=== PATIENT | male | born 2000 | race Caucasian/White ===

== ENCOUNTER → 2019-04-09 19:06 | Outpatient (BNVA) | payer OTHER, SELFPAY | PROVIDERS: PCP Family Medicine; Visit Provider Nurse Practitioner | DX: S99.911A Unspecified injury of right ankle, initial encounter (principal); Y99.0 Civilian activity done for income or pay | CPT/HCPCS: 73610 ==

== ENCOUNTER 2019-08-10 19:03 | Emergency (ER) | payer MEDICAID, SELFPAY ==
[2019-08-10 19:14] VITALS: BP 148/81; PULSE 91; RESP 18; TEMP 37.1; O2SAT 97; BMI 26.4
--- NOTE | 2019-08-10 19:28 | XR_ITS ---
WS: [id number] XR foot RT min 3V* [id number] REASON FOR EXAM: puncture FINDINGS: The calcaneus appears to be normal. The plantar surface of foot shows edema this changes in the proximal metatarsal area. The phalanges, metatarsals and tarsals are normal. XR/XR foot RT min 3V* [id number] IMPRESSION: Soft tissue swelling plantar surface of foot.
--- NOTE | 2019-08-10 19:28 | W.ED.WOUNDLC ---
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 Bleeding is controlled with a long sock tied as a tourniquet around the foot. Onset (ago): hour(s) Extremity Location: Right: foot Place: home Patient tetanus UTD: No Context: accidental Associated symptoms: Reports no associated symptoms; Denies chills, fever(s), nausea or vomiting Treatments prior to arrival: bandage and tourniquet Review of Systems Const: Denies: fever or chills Card: Denies: chest pain, palpitations or edema Resp: Denies: shortness of breath, productive cough or wheezing GI: Denies: abdominal pain, nausea, vomiting or vomiting blood Musc: Reports: extremity pain; Denies: neck pain PFSH ED PFSH: Social History (Updated 05/06/19 @ 10:50 by Shari Pollard LPN) Smoking and tobacco status: current every day smoker Alcohol intake: never Physical Exam Const: GENERAL APPEARANCE: well developed ORIENTATION/CONSCIOUSNESS: Yes oriented to person, Yes oriented to place and Yes oriented to time HENMT: COMMON NORMALS: normocephalic, external ears normal and external nose normal HEAD & SCALP: normocephalic FACE & SINUS: normal facial exam NOSE: external nose normal EXTERNAL EAR: Yes external ears normal THROAT: posterior oropharynx normal; no peritonsillar mass Eye: COMMON NORMALS: PERRL, EOMs intact bilaterally and conjunctivae normal EYELID: eyelids normal CONJUNCTIVA: Yes conjunctivae normal PUPIL: Yes PERRL Neck/C-Spine: COMMON NORMALS: full ROM GENERAL: No tracheal deviation Chest: COMMONS NORMALS: inspection of chest normal CHEST: No tenderness Resp: COMMON NORMALS: clear to auscultation bilaterally AUSCULTATION: clear to auscultation bilaterally, no rhonchi, no wheezes and lung sounds not diminished Cardio: COMMON NORMALS: regular rate and regular rhythm RATE: regular rate RHYTHM: regular rhythm HEART SOUNDS: no murmurs PERIPHERAL PULSES: radial pulses present GI: INSPECTION: No abdominal distension Extremity: NARRATIVE EXTREMITY EXAM: Puncture wound to the plantar right foot, mid arch. No deformity. Neuro: SENSORIUM/ORIENTATION: Yes oriented to person, Yes oriented to place and Yes oriented to time Psych: COMMON NORMALS: mental status grossly normal Skin: COMMON NORMALS: no rashes or lesions noted GENERAL SKIN EXAM: no rashes or lesions noted Procedures Laceration Laceration 1: Site: lower extremity (Plantar foot) Side (If applicable): right Size (cm): 1 Description: linear Depth: simple, single layer Local Anesthetic: lidocaine 1% Pre-repair: wound explored and irrigated extensively Skin layer closed with: nylon Size (cm): 5-0 Number of sutures: 3 Technique: simple, interrupted Course Vital Signs: Vital signs: Vital Signs Temperature 98.8 F 08/10/19 19:14 Pulse Rate 91 08/10/19 19:14 Respiratory Rate 18 08/10/19 19:14 Blood Pressure 117/81 08/10/19 20:10 Pulse Oximetry 97 08/10/19 20:10 MDM - Wound/Laceration MDM Narrative: Medical decision making narrative: Bleeding controlled after suturing. Tetanus updated. He will go home on antibiotics, as this is a plantar foot wound that went through a sole of a shoe. Discharge Plan Discharge Patient Disposition: Home, Self-Care Clinical Impression: Laceration Condition: Stable Prescriptions: New Levaquin 500 mg tablet 500 mg PO DAILY 7 Days Qty: 7 RF: 0 ketorolac 10 mg tablet 10 mg PO Q6H 5 Days Qty: 20 RF: 0 No Action ropinirole 1 mg tablet 1 mg PO BID RF: 0 Lantus Solostar U-100 Insulin 100 unit/mL (3 mL) insulin pen 100 unit SUBCUT ONCE RF: 0 Victoza 2-Steve 0.6 mg/0.1 mL (18 mg/3 mL) pen injector 1.2 mg SUBCUT Q24H RF: 0 atomoxetine [Strattera] 25 mg capsule 25 mg PO ONCE RF: 0 montelukast [Singulair] 10 mg tablet 10 mg PO ONCE RF: 0 fluticasone propion-salmeterol [Advair Diskus] 100-50 mcg/dose blister with device 1 puff INHALATION BID PRNRF: 0 acetaminophen [Tylenol Extra Strength] 500 mg tablet 500 mg PO Q4H PRN (Reason: pain) RF: 0 Discharge Orders: Discharge Order (Routine); Ordered 08/10/19 Ordered By: Jimmy Liu Referrals: Veronica Cantu MD [Primary Care Provider] - 7-10 days Discharge Diet: Usual diet Discharge Activity: Increase activity as tolerated Patient Instructions: Puncture Wound (ED) Activity Restrictions/Additional Instructions: Keep wound clean and dry for the next 24 hours, then may wash with soap and running water. Do not soak. Sutures out in 7 to 10 days. Antibiotics as directed. Return for worsening swelling, pain, redness, fever despite treatment. 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
[2019-08-10] MEDS: oxyCODONE-APAP 5-325 mg Tablet 2 TAB PO (19:46)
[2019-08-10] MEDS: tetanus-dipt-pertussis 0.5 mL SDV IM (19:47)
[2019-08-10] MEDS: lidocaine 1% INJ 20 mL INJECTION (19:47)
[2019-08-10 19:56] VITALS: BP 136/92; O2SAT 97
[2019-08-10 20:00] VITALS: BP 117/81; O2SAT 96
[2019-08-10 20:05] VITALS: BP 117/81; O2SAT 98
[2019-08-10 20:10] VITALS: BP 117/81; O2SAT 97
[2019-08-10] MEDS: levoFLOXacin 500 mg Tablet PO (20:13)
== END 2019-08-10 20:25 | disposition home or self-care (01) ==
PROVIDERS: Emergency Provider Emergency Medicine; PCP Family Medicine
DX: S91.311A Laceration without foreign body, right foot, initial encounter (principal); W26.8XXA Contact with other sharp object(s), not elsewhere classified, initial encounter; Z79.82 Long term (current) use of aspirin; F17.210 Nicotine dependence, cigarettes, uncomplicated; Z23 Encounter for immunization
CPT/HCPCS: 12001; 12345; 73630; 90471; 90715; 99281; 99283; J2001

== ENCOUNTER → 2019-08-23 14:55 | Outpatient (BNVA) | payer MEDICAID, SELFPAY | PROVIDERS: Visit Provider Psychiatry & Neurology Psychiatry | DX: F34.9 Persistent mood [affective] disorder, unspecified (principal); F32.3 Major depressive disorder, single episode, severe with psychotic features; F43.12 Post-traumatic stress disorder, chronic; E63.9 Nutritional deficiency, unspecified; G47.00 Insomnia, unspecified; G47.50 Parasomnia, unspecified; E53.8 Deficiency of other specified B group vitamins; F19.982 Other psychoactive substance use, unspecified with psychoactive substance-induced sleep disorder | CPT/HCPCS: 99205 ==

== ENCOUNTER → 2019-08-27 08:36 | Outpatient (BNVA) | payer MEDICAID, SELFPAY | PROVIDERS: Visit Provider Social Worker Clinical | DX: F32.3 Major depressive disorder, single episode, severe with psychotic features (principal) | CPT/HCPCS: 90834 ==

== ENCOUNTER → 2019-09-10 08:31 | Outpatient (BNVA) | payer MEDICAID, SELFPAY | PROVIDERS: Visit Provider Social Worker Clinical | DX: F43.12 Post-traumatic stress disorder, chronic (principal); F32.3 Major depressive disorder, single episode, severe with psychotic features | CPT/HCPCS: 90834 ==

== ENCOUNTER → 2019-09-24 08:20 | Outpatient (BNVA) | payer MEDICAID, SELFPAY | PROVIDERS: Visit Provider Social Worker Clinical | DX: F32.3 Major depressive disorder, single episode, severe with psychotic features (principal); F43.12 Post-traumatic stress disorder, chronic | CPT/HCPCS: 90834 ==

== ENCOUNTER → 2019-09-27 08:41 | Outpatient (BNVA) | payer MEDICAID, SELFPAY | PROVIDERS: Visit Provider Nurse Practitioner | DX: F43.12 Post-traumatic stress disorder, chronic (principal); F34.9 Persistent mood [affective] disorder, unspecified; F33.1 Major depressive disorder, recurrent, moderate | CPT/HCPCS: 99204 ==

== ENCOUNTER → 2019-10-08 08:40 | Outpatient (BNVA) | payer MEDICAID, SELFPAY | PROVIDERS: Visit Provider Social Worker Clinical | DX: F43.12 Post-traumatic stress disorder, chronic (principal); F32.3 Major depressive disorder, single episode, severe with psychotic features | CPT/HCPCS: 90834 ==

== ENCOUNTER → 2019-10-22 08:33 | Outpatient (BNVA) | payer MEDICAID, SELFPAY | PROVIDERS: Visit Provider Social Worker Clinical | DX: F43.12 Post-traumatic stress disorder, chronic (principal); F32.3 Major depressive disorder, single episode, severe with psychotic features | CPT/HCPCS: 90834 ==

== ENCOUNTER → 2019-11-05 11:15 | Outpatient (BNVA) | payer MEDICAID, SELFPAY | PROVIDERS: Visit Provider Social Worker Clinical | DX: F43.12 Post-traumatic stress disorder, chronic (principal); F32.3 Major depressive disorder, single episode, severe with psychotic features | CPT/HCPCS: 90834 ==

== ENCOUNTER → 2019-11-20 09:00 | Outpatient (BNVA) | payer MEDICAID, SELFPAY | PROVIDERS: Visit Provider Social Worker Clinical | DX: F43.12 Post-traumatic stress disorder, chronic (principal); F32.3 Major depressive disorder, single episode, severe with psychotic features | CPT/HCPCS: 90834 ==

== ENCOUNTER → 2019-12-04 10:11 | Outpatient (BNVA) | payer MEDICAID, SELFPAY | PROVIDERS: Visit Provider Social Worker Clinical | DX: F43.12 Post-traumatic stress disorder, chronic (principal); F32.3 Major depressive disorder, single episode, severe with psychotic features | CPT/HCPCS: 90832 ==

== ENCOUNTER → 2020-01-16 13:36 | Outpatient (BNVA) | payer MEDICAID, SELFPAY | PROVIDERS: Visit Provider Internal Medicine | DX: E11.649 Type 2 diabetes mellitus with hypoglycemia without coma (principal) | CPT/HCPCS: 99204 ==

== ENCOUNTER → 2020-02-06 15:43 | Outpatient (BNVA) | payer MEDICAID, SELFPAY | PROVIDERS: Visit Provider Internal Medicine | DX: E11.649 Type 2 diabetes mellitus with hypoglycemia without coma (principal) | CPT/HCPCS: 99213 ==

== ENCOUNTER 2020-03-28 12:20 | Emergency (ER) | payer MEDICAID, SELFPAY ==
[2020-03-28 12:26] VITALS: BP 134/93; PULSE 95; RESP 18; TEMP 36.6; O2SAT 96; BMI 30.3
[2020-03-28 12:30] VITALS: BP 143/95; PULSE 96; RESP 16; TEMP 36.6; O2SAT 97
--- NOTE | 2020-03-28 13:27 | ED_ITS ---
HPI - Dental/Oral General: Chief complaint: Dental/Oral Stated complaint: Pain in mouth, chest, and arms Time Seen by Provider: 03/28/20 12:41 Source: patient Mode of arrival: ambulatory Limitations: no limitations History of Present Illness: HPI Narrative: 19-year-old male patient presents to the emergency department with complaints of dental pain. He reports on 03/24/2020, sustained dental extraction of his left lower molars x3. States told his dentist he had plenty of amoxicillin but ran out 2 days ago, states did not have refill at the pharmacy from an old script. He is complaining of increased pain with swelling to the lower jaw with pain radiating to his chest and arms. He denies difficulty swallowing, denies difficulty breathing. He continues with warm salt water swish and spit several times daily with use of ibuprofen and Tylenol for pain. Onset (ago): day(s) (1) Duration: constant Severity: moderate Severity scale (1-10): 5 Relieving factors: NSAIDs Exacerbating factors: chewing Associated symptoms: Reports gum swelling; Denies fever(s) Treatment prior to arrival: other (NSAIDs and Tylenol) Review of Systems General: Reports: 10 or more systems reviewed and unremarkable except in HPI and below Const: Denies: fever(s), chills or diaphoresis Eyes: Denies: blurry vision or eye redness ENMT: Reports: dental pain; Denies: throat pain, uvular edema, oral sores, halitosis or disequilibrium Card: Denies: chest pain, palpitations or irregular heart rhythm Resp: Denies: dyspnea, productive cough, non-productive cough or wheezing GI: Denies: abdominal pain, nausea or vomiting : Denies: dysuria Musc: Reports: neck pain (left upper lateral); Denies: back pain Skin/Breast: Denies: rash or pruritus Neuro: Denies: headache(s), weakness in extremities or behavioral changes Psych: Denies: anxiety, depression, mood swings or change in appetite [place]/Lymph: Denies: easy bruising PFSH ED PFSH: Medical History (Updated 03/28/20 @ 13:32 by MAHESH Del Rosario) ADHD Anxiety Asthma Chronic post-traumatic stress disorder (PTSD) Diabetes Surgical History H/O arthroscopic knee surgery History of surgery right leg and ankle 2005 Family History Father CAD (coronary artery disease) Diabetes Mother Diabetes Stroke Cancer breast Brother Epilepsy Social History Smoking and tobacco status: current every day smoker cigarettes Packs smoked per day: 0.5 Years cigarettes smoked: 2 and smokeless tobacco Smokeless tobacco user: chewing tobacco Smokeless tobacco details: 0.25-0.5 a can per day since 14. Quit status (tobacco): considering quitting Second hand smoke exposure: No Alcohol intake: never Current gender identity: Male Physical Exam Const: COMMON NORMALS: no acute distress, patient oriented x3, healthy appearing and alert GENERAL APPEARANCE: cooperative, comfortable and well hydrated HENMT: COMMON NORMALS: normocephalic, atraumatic, external ears normal, EAC's normal, TM's normal bilaterally, Normal external nose present and moist oral mucous membranes HEAD & SCALP: normal to inspection, normocephalic, atraumatic and other FACE & SINUS: normal facial exam and face symmetric NOSE: Normal external nose present EXTERNAL EAR: Yes external ears normal EXTERNAL AUDITORY CANAL: EAC's normal TYMPANIC MEMBRANE: TM's normal bilaterally MOUTH: Normal oral and palatal mucosa present, lip normal and tongue normal (Tongue ring present) TEETH & GINGIVA: Yes other (Mandible tenderness left, negative lymphadenopathy.) TEETH & GINGIVA IMAGES: 1. Dental extraction, gumline with purulent drainage, swelling and erythema present 2. Dental extraction of #18, similar findings to that of #20 and 19. THROAT: no uvular edema Eye: COMMON NORMALS: Equal, round and reactive pupils present and EOMs intact bilaterally GENERAL EYE: appearance normal, both eyes and all related structures PUPIL: Yes Equal, round and reactive pupils present Neck/C-Spine: COMMON NORMALS: full ROM and no lymphadenopathy GENERAL: Yes normal visual inspection and Yes trachea midline CERVICAL SPINE: Yes cervical ROM normal Lymph: LYMPHATIC: lymphadenopathy (Anterior cervical noted, mild) Chest: COMMONS NORMALS: normal inspection of the chest Resp: COMMON NORMALS: normal respiratory effort and clear to auscultation bilaterally AUSCULTATION: clear to auscultation bilaterally Cardio: COMMON NORMALS: regular rhythm, S1 normal heart sound present, S2 normal heart sound present and Peripheral pulses 2+ throughout RHYTHM: regular rhythm HEART SOUNDS: S1 normal heart sound present and S2 normal heart sound present PERIPHERAL PULSES: Peripheral pulses 2+ throughout GI: COMMON NORMALS: Soft to palpation and non-tender INSPECTION: Yes normal to inspection PALPATION: Yes Soft to palpation : COMMON NORMALS: Yes no CVA tenderness BLADDER/KIDNEY EXAM: Yes no CVA tenderness Back/Pelvis: COMMON NORMALS: no CVA tenderness and thoracic and lumbar spine normal to inspection Extremity: COMMON NORMALS: normal to inspection and capillary refill normal Neuro: COMMON NORMALS: patient oriented x3 and no focal motor deficits SENSORIUM/ORIENTATION: Yes alert Psych: COMMON NORMALS: mental status grossly normal, Normal thought process present and cooperative ACTIVITY/MOTOR BEHAVIOR: Yes appropriate eye contact THOUGHT PROCESS: Normal thought process present Skin: COMMON NORMALS: no rashes or lesions noted and turgor normal GENERAL SKIN EXAM: no rashes or lesions noted and turgor normal Course Vital Signs: Vital signs: Vital Signs Temperature 97.9 F 03/28/20 13:57 Pulse Rate 86 03/28/20 14:17 Respiratory Rate 16 03/28/20 14:17 Blood Pressure 138/90 03/28/20 14:17 Pulse Oximetry 94 03/28/20 14:17 Discharge Plan Discharge Patient Disposition: Home Clinical Impression: Dental abscess, Pain, dental Condition: Stable Prescriptions: New clindamycin HCl 300 mg capsule 300 mg PO QID 10 Days Qty: 40 RF: 0 No Action omeprazole 40 mg capsule,delayed release(DR/EC) 40 mg PO DAILY RF: 0 zolpidem [Ambien] 10 mg tablet 10 mg PO .qhs PRN (Reason: insomnia) Qty: 14 RF: 0 metformin 1,000 mg tablet 1,000 mg PO BID Qty: 240 RF: 3 fluticasone propion-salmeterol [Advair Diskus] 100-50 mcg/dose blister with device 1 puff INHALATION BID PRNRF: 0 acetaminophen [Tylenol Extra Strength] 500 mg tablet 500 mg PO Q4H PRN (Reason: pain) RF: 0 ropinirole 1 mg tablet 2 mg PO BID RF: 0 Tresiba FlexTouch U-100 100 unit/mL (3 mL) insulin pen 40 unit SUBCUT DAILY RF: 0 amitriptyline 25 mg tablet 25 mg PO DAILY RF: 0 (DME) FreeStyle Tory 14 Day [place] Misc See Rx Instructions .ROUTE .MEDSUPPLY Qty: 1 RF: 0 (DME) FreeStyle Tory 14 Day Sensor Kit See Rx Instructions .ROUTE .MEDSUPPLY Qty: 2 RF: 3 bupropion HCl [Wellbutrin XL] 150 mg tablet extended release 24 hr 150 mg PO QAM Qty: 30 RF: 1 Discharge Orders: Discharge ED (Routine); Ordered 03/28/20 Ordered By: Adrianna Ponce Discharge Diet: GI Soft Discharge Activity: Limit activity as instructed Patient Instructions: Dental Abscess (ED), Toothache (ED), Mouth Care (ED) Activity Restrictions/Additional Instructions: Continue warm salt water swish and spit several times daily Continue with ibuprofen and Tylenol as needed for pain May apply Anbesol or other [id number] numbing medication to the area to help with pain Follow-up with your dentist on Monday without fail, reevaluation will be needed Due to need for reevaluation, note for work has been provided Take clindamycin until all gone, even if feeling better Return to the emergency department if you develop swelling under the chin, difficulty breathing or difficulty swallowing, continue with soft diet such as milkshakes Gatorade and pudding/ice cream, avoid solid foods and chewing until improved Stand Alone Forms: Work/School Release Coding Level of Care Code 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
[2020-03-28] MEDS: ondansetron 4 MG Tablet PO (13:50)
[2020-03-28] MEDS: HYDROcodone-acetaminophen 5-325 mg Tablet 1 TAB PO (13:50)
[2020-03-28] MEDS: clindamycin 150 mg Capsule 300 MG PO (13:51)
[2020-03-28 13:57] VITALS: BP 138/90; PULSE 86; RESP 14; TEMP 36.6; O2SAT 98
[2020-03-28 14:17] VITALS: BP 138/90; PULSE 86; RESP 16; O2SAT 94
--- NOTE | 2020-03-28 19:25 | ECG_ITS ---
[facility] Test Date: 2020-03-28 Pat Name: Osvaldo Mcneill Department: Room: Gender: Male Shoe Worker: : 2000 Requested By: Adrianna Pendleton Order Number: [id number] Colton MD: Travis Dimas M.D. Measurements Intervals [place] Rate: 91 P: 51 IN: 135 QRS: 74 QRSD: 96 T: 44 QT: 334 QTc: 413 Interpretive Statements SINUS RHYTHM WITH MARKED SINUS ARRHYTHMIA NONSPECIFIC T-WAVE ABNORMALITY No previous ECG available for comparison Electronically Signed On 03-29-2020 11:07:41 PRESS SETTER by Travis Dimas M.D. [id number]
== END 2020-03-28 14:19 | disposition home or self-care (01) ==
PROVIDERS: Emergency Provider Nurse Practitioner Family
DX: K04.7 Periapical abscess without sinus (principal); Z79.4 Long term (current) use of insulin; E11.9 Type 2 diabetes mellitus without complications; F17.210 Nicotine dependence, cigarettes, uncomplicated
CPT/HCPCS: 12345; 93005; 99281; 99283; Q0162

== ENCOUNTER 2020-08-08 21:37 | Emergency (ER) | payer BC, MEDICAID, SELFPAY ==
[2020-08-08 21:41] VITALS: BP 148/93; PULSE 86; RESP 17; TEMP 37.1; O2SAT 98; BMI 25.8
[2020-08-08 21:47] VITALS: BP 162/116; PULSE 95; RESP 16; O2SAT 98
--- NOTE | 2020-08-08 22:00 | ED_ITS ---
HPI - General Adult General: Chief complaint: Dental/Oral Stated complaint: oral pain Time Seen by Provider: 08/08/20 21:49 History of Present Illness: HPI narrative: Patient sent area in his lower right cheek that has been swollen for 2 to 3 months been worse last 2 to 3 days patient does use smokeless tobacco in that area. Patient said it is hurt for the last 2 to 3 days pretty bad. There is no drainage no fever no chills. Patient is also diabetic and also smokes and drinks alcohol. MD complaint: Swelling in mouth Onset (ago): month(s) Location: mouth Radiation: non-radiation Severity: moderate Severity scale (1-10): 5 Quality: aching Pain Consistency: constant Relieving factors: none Exacerbating factors: none Associated symptoms: Reports no associated symptoms; Deny chest pain, dyspnea, headache(s), nausea, rash or vomiting Review of Systems Const: Denies: fever(s), chills or body aches Eyes: Denies: change in vision or blurry vision ENMT: Reports: mouth pain (Swelling right side of cheek lower aspect); Denies: throat pain, bleeding gums, dental pain or nasal congestion Card: Denies: chest pain or dyspnea on exertion Resp: Denies: dyspnea, productive cough or non-productive cough GI: Denies: abdominal pain, nausea or vomiting : Denies: difficulty urinating Musc: Denies: extremity pain Skin/Breast: Denies: rash Neuro: Denies: headache(s) Psych: Denies: anxiety or depression Endo: Reports: polyuria (Use a sliding scale insulin.) and other (Sugars have been pretty high the last month or 2 but now down to 200 range ) Zel[place]/Lymph: Denies: easy bruising COUNTS INCLUDE 234 BEDS AT THE [facility] ED PFSH: Medical History (Updated 08/08/20 @ 21:57 by MAYTE Osorio) ADHD Anxiety Asthma Chronic post-traumatic stress disorder (PTSD) Diabetes Surgical History H/O arthroscopic knee surgery History of surgery right leg and ankle 2005 Family History Father CAD (coronary artery disease) Diabetes Mother Diabetes Stroke Cancer breast Brother Epilepsy Social History Smoking and tobacco status: current every day smoker cigarettes Packs smoked per day: 0.5 Years cigarettes smoked: 2 and smokeless tobacco Smokeless tobacco user: chewing tobacco Smokeless tobacco details: 0.25-0.5 a can per day since 14. Quit status (tobacco): considering quitting Second hand smoke exposure: No Alcohol intake: never Current gender identity: Male Physical Exam Const: COMMON NORMALS: no acute distress, average body habitus and patient oriented x3 HENMT: COMMON NORMALS: normocephalic HEAD & SCALP: normal to inspection and normocephalic FACE & SINUS: normal facial exam MOUTH: moist mucous membranes abnormal, Abnormal salivary glands and ducts (Area swelling has some white areas to it no erythema no lymphadenopathy) and other (Has small area of swelling right lower side of mouth near the base of the g) Eye: COMMON NORMALS: conjunctivae normal GENERAL EYE: appearance normal, both eyes and all related structures CONJUNCTIVA: Yes conjunctivae normal Neck/C-Spine: COMMON NORMALS: no JVD Chest: COMMONS NORMALS: normal inspection of the chest Resp: COMMON NORMALS: normal respiratory effort and clear to auscultation bilaterally AUSCULTATION: clear to auscultation bilaterally Cardio: COMMON NORMALS: no JVD, regular rate and regular rhythm RATE: regular rate RHYTHM: regular rhythm GI: COMMON NORMALS: Normal to inspection, nondistended, normoactive bowel sounds present Extremity: COMMON NORMALS: normal to inspection and full ROM Neuro: COMMON NORMALS: patient oriented x3 Course Vital Signs: Vital signs: Vital Signs Temperature 98.8 F 08/08/20 21:41 Pulse Rate 95 08/08/20 22:21 Respiratory Rate 16 08/08/20 21:47 Blood Pressure 162/111 08/08/20 22:21 Pulse Oximetry 98 08/08/20 22:21 MDM - General Adult MDM Narrative: Medical decision making narrative: Patient has swollen area in his right cheek that is concerning for leukoplakia. Patient does chew tobacco in this area keeps them. There was no erythema no lymphadenopathy patient will be sent for ENT evaluation. No evidence of any infection. Discharge Plan Discharge Patient Disposition: Home Clinical Impression: Swelling of gland, Tobacco abuse Condition: Stable Prescriptions: New tramadol 50 mg tablet 50 mg PO TID PRN (Reason: pain) Qty: 14 RF: 0 No Action omeprazole 40 mg capsule,delayed release(DR/EC) 40 mg PO DAILY RF: 0 zolpidem [Ambien] 10 mg tablet 10 mg PO .qhs PRN (Reason: insomnia) Qty: 14 RF: 0 metformin 1,000 mg tablet 1,000 mg PO BID Qty: 240 RF: 3 fluticasone propion-salmeterol [Advair Diskus] 100-50 mcg/dose blister with device 1 puff INHALATION BID PRNRF: 0 acetaminophen [Tylenol Extra Strength] 500 mg tablet 500 mg PO Q4H PRN (Reason: pain) RF: 0 ropinirole 1 mg tablet 2 mg PO BID RF: 0 Tresiba FlexTouch U-100 100 unit/mL (3 mL) insulin pen 40 unit SUBCUT DAILY RF: 0 amitriptyline 25 mg tablet 25 mg PO DAILY RF: 0 (DME) FreeStyle Tory 14 Day [place] Misc See Rx Instructions .ROUTE .MEDSUPPLY Qty: 1 RF: 0 (DME) FreeStyle Tory 14 Day Sensor Kit See Rx Instructions .ROUTE .MEDSUPPLY Qty: 2 RF: 3 bupropion HCl [Wellbutrin XL] 150 mg tablet extended release 24 hr 150 mg PO QAM Qty: 30 RF: 1 Discharge Orders: Discharge ED (Routine); Ordered 08/08/20 Ordered By: Terence Quesada Discharge Diet: As Directed Discharge Activity: Resume usual activity Patient Instructions: Opioid Safety Activity Restrictions/Additional Instructions: Follow-up with medical provider as directed. Take medications as prescribed. Return to the ER or your medical provider if condition worsens. Please read and understand discharge instructions. If any questions ask please. Hospital will contact you with an appointment on Monday for an ENT hopefully here in the next week to get this area evaluated. I recommend that you stop chewing tobacco. And follow good strict diabetic diet. 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
[2020-08-08] MEDS: TRAMadol 50 mg Tablet PO (22:14)
[2020-08-08 22:21] VITALS: BP 162/111; PULSE 95; O2SAT 98
--- NOTE | 2020-08-10 12:17 | DCPLANNER ---
critical care unit manager had message to schedule a follow up appointment for patient with ENT. critical care unit manager emailed patients information to Dilcia Berumen and Rachel at [facility] E[facility], Nose [facility] Throat. Patients information will be printed and reviewed. Clinic will call patient with appointment information.
--- NOTE | 2020-08-12 07:40 | DCPLANNER ---
Patient had a follow up appointment scheduled for 08.11.20 with [facility] - patient did attend appointment.
== END 2020-08-08 22:22 | disposition home or self-care (01) ==
PROVIDERS: Emergency Provider Nurse Practitioner Family
DX: R59.9 Enlarged lymph nodes, unspecified (principal); F17.210 Nicotine dependence, cigarettes, uncomplicated; Z79.4 Long term (current) use of insulin; E11.9 Type 2 diabetes mellitus without complications
CPT/HCPCS: 99283

== ENCOUNTER 2020-09-19 05:13 | Emergency (ER) | payer BC, MEDICAID, SELFPAY ==
[2020-09-19 05:42] VITALS: BP 143/93; PULSE 67; RESP 17; TEMP 36.6; O2SAT 99; BMI 26.6
[2020-09-19 05:45] VITALS: PULSE 67; RESP 18; O2SAT 98
--- NOTE | 2020-09-19 06:10 | ED_ITS ---
HPI - Wound/Laceration General: Chief Complaint: Wound/Laceration Stated Complaint: left hand lac Time Seen by Provider: 09/19/20 05:48 History of Present Illness: HPI narrative: 19-year-old male who has a laceration to the dorsal aspect of his left hand that happened at home while cutting a sandwich at 3:00 in the morning. He says his tetanus shot is up-to-date he denies any loss of range of motion or loss of sensation he is right handed Review of Systems Narrative: Denies excessive bleeding denies loss of function or sensation. He denies any recent illness fevers chills or other injuries [facility] ED PFS: Medical History (Updated 09/19/20 @ 06:21 by Lianet Baptiste DO) ADHD Anxiety Asthma Chronic post-traumatic stress disorder (PTSD) Diabetes Surgical History H/O arthroscopic knee surgery History of surgery right leg and ankle 2005 Family History Father CAD (coronary artery disease) Diabetes Mother Diabetes Stroke Cancer breast Brother Epilepsy Social History Smoking and tobacco status: current every day smoker cigarettes Packs smoked per day: 0.5 Years cigarettes smoked: 2 and smokeless tobacco Smokeless tobacco user: chewing tobacco Smokeless tobacco details: 0.25-0.5 a can per day since 14. Quit status (tobacco): considering quitting Second hand smoke exposure: No Alcohol intake: never Current gender identity: Male Physical Exam Narrative: EXAM NARRATIVE: General: no distress, HEENT: normal eyes, normal mouth, normal external nose Neck: FROM Resp: normal effort, no tachypnea, no stridor Cardio: normal rate, no edema GI: soft, flat, non distended : deferred Neuro: normal coordination, normal speech, no gross motor or sensory deficits Musculo: normal ROM, no gross deformities, no visual tendon, FROM good flexion and extension. profundus intact, MCP, PIP, DIP all ROM intact Skin: no rash, 4cm linear lac left dorsum hand between 2/3 digits proximal to mcps Psych: normal behavior normal mood and effect Course Vital Signs: Vital signs: Vital Signs Temperature 97.8 F 09/19/20 05:42 Pulse Rate 67 09/19/20 05:45 Respiratory Rate 18 09/19/20 05:45 Blood Pressure 143/93 09/19/20 05:42 Pulse Oximetry 98 09/19/20 05:45 MDM - Wound/Laceration MDM Narrative: Medical decision making narrative: Clean wound no debris noted tetanus is up-to-date full range of motion no visualization of tendon 2 cc of 1% Xylocaine instilled 4.0 Vicryl 3 times simple interrupted sutures No active bleeding range of motion intact post procedure full range of motion patient tolerated well There is no signs of infection however with it being a hand injury will prophylactically put him on some Keflex 500 mg twice a day is currently not working so no work restrictions Discharge Plan Discharge Patient Disposition: Home Clinical Impression: Laceration Condition: Stable Prescriptions: New cephalexin 500 mg capsule 500 mg PO BID 5 Days Qty: 10 RF: 0 No Action omeprazole 40 mg capsule,delayed release(DR/EC) 40 mg PO DAILY RF: 0 zolpidem [Ambien] 10 mg tablet 10 mg PO .qhs PRN (Reason: insomnia) Qty: 14 RF: 0 metformin 1,000 mg tablet 1,000 mg PO BID Qty: 240 RF: 3 amoxicillin-pot clavulanate [Augmentin] 875-125 mg tablet 1 tab PO BID 10 Days Qty: 20 RF: 0 fluticasone propion-salmeterol [Advair Diskus] 100-50 mcg/dose blister with device 1 puff INHALATION BID PRNRF: 0 acetaminophen [Tylenol Extra Strength] 500 mg tablet 500 mg PO Q4H PRN (Reason: pain) RF: 0 Tresiba FlexTouch U-100 100 unit/mL (3 mL) insulin pen 40 unit SUBCUT DAILY RF: 0 amitriptyline 25 mg tablet 25 mg PO DAILY RF: 0 (DME) FreeStyle Tory 14 Day [place] Misc See Rx Instructions .ROUTE .MEDSUPPLY Qty: 1 RF: 0 (DME) FreeStyle Tory 14 Day Sensor Kit See Rx Instructions .ROUTE .MEDSUPPLY Qty: 2 RF: 3 bupropion HCl [Wellbutrin XL] 150 mg tablet extended release 24 hr 150 mg PO QAM Qty: 30 RF: 1 tramadol 50 mg tablet 50 mg PO TID PRN (Reason: pain) Qty: 14 RF: 0 Discharge Orders: Discharge ED (Routine); Ordered 09/19/20 Ordered By: Lianet Baptiste Discharge Diet: Usual diet Discharge Activity: Resume usual activity Patient Instructions: Laceration (ED) Activity Restrictions/Additional Instructions: Do not soak wound okay to shower later today but make sure and dry the wound well. Keep it dry. Antibiotics are twice a day to try and prevent an infection you have a higher increase chance of infection on your hand please make sure you keep it dry Sutures out in 7 days Thank you for choosing [facility] for your healthcare needs today. Please realize this is an emergency room and that we are providing you with a medical screening exam and this may not be complete and all inclusive of all the testing and or work up that you may need to determine your ailment or severity of your illness. It is very important that you follow up as instructed or that you return to the Emergency Department should you have concerns or if your co ndition changes or worsens in any way. Coding Level of Care Code ED Window Treatment Installer for Bereket Doe
[2020-09-19] MEDS: lidocaine 1% INJ 20 mL INJECTION (06:17)
[2020-09-19 06:25] VITALS: BP 131/84; PULSE 87; RESP 17; O2SAT 99
== END 2020-09-19 06:27 | disposition home or self-care (01) ==
PROVIDERS: Emergency Provider Emergency Medicine
DX: S61.412A Laceration without foreign body of left hand, initial encounter (principal); Z79.4 Long term (current) use of insulin; E11.9 Type 2 diabetes mellitus without complications; F17.210 Nicotine dependence, cigarettes, uncomplicated; W45.8XXA Other foreign body or object entering through skin, initial encounter
CPT/HCPCS: 99282

== ENCOUNTER 2020-11-16 00:51 | Emergency (ER) | payer BC, MEDICAID, SELFPAY ==
[2020-11-16 00:55] VITALS: BP 153/94; PULSE 86; RESP 16; TEMP 36.9; O2SAT 97; BMI 25.7
--- NOTE | 2020-11-16 01:42 | PC.NURSE ---
dr cormier in room at this time.
--- NOTE | 2020-11-16 02:11 | ED_ITS ---
HPI - Skin/Abscess/Foreign Bdy General: Chief complaint: Skin/Abscess/Foreign Body Stated complaint: poss cyst in groin area Time Seen by Provider: 11/16/20 01:03 History of Present Illness: MD complaint: abscess/boil and lesion Onset (ago): day(s) (3) Tetanus up to date: yes Severity: moderate Quality: burning and aching Pain Consistency: constant Relieving factors: none Exacerbating factors: movement Context: none Associated symptoms: Deny fever(s), nausea or vomiting Treatments prior to arrival: OTC topical medication Review of Systems Const: Denies: fever(s) Card: Denies: chest pain Resp: Denies: dyspnea or productive cough GI: Denies: nausea or vomiting [facility] ED PFSH: Medical History (Updated 11/16/20 @ 02:08 by Jimmy Liu DO) ADHD Anxiety Asthma Chronic post-traumatic stress disorder (PTSD) Diabetes Surgical History H/O arthroscopic knee surgery History of surgery right leg and ankle 2005 Family History Father CAD (coronary artery disease) Diabetes Mother Diabetes Stroke Cancer breast Brother Epilepsy Social History Smoking and tobacco status: current every day smoker cigarettes Packs smoked per day: 0.5 Years cigarettes smoked: 2 and smokeless tobacco Smokeless tobacco user: chewing tobacco Smokeless tobacco details: 0.25-0.5 a can per day since 14. Quit status (tobacco): considering quitting Second hand smoke exposure: No Alcohol intake: never Current gender identity: Male Physical Exam Const: COMMON NORMALS: no acute distress Chest: COMMONS NORMALS: normal inspection of the chest Resp: COMMON NORMALS: normal respiratory effort and No use of accessory muscles Cardio: COMMON NORMALS: regular rate and regular rhythm RATE: regular rate RHYTHM: regular rhythm Skin: NARRATIVE SKIN EXAM: 4 to 5 cm area of induration, fluctuance, redness and tenderness in the infraumbilical anterior abdominal wall. No active drainage Procedures Abscess I/D Site: abdomen Local Anesthetic: lidocaine 1% and with epi Amount of anesthesia used (mL): 8 Technique: incised with #11 blade Amount of fluid expressed (mL): 3 Irrigation: No Packing used?: plain Course Vital Signs: Vital signs: Vital Signs Temperature 98.4 F 11/16/20 00:55 Pulse Rate 86 11/16/20 00:55 Respiratory Rate 16 11/16/20 00:55 Blood Pressure 153/94 11/16/20 00:55 Pulse Oximetry 97 11/16/20 00:55 MDM - Skin/Abscess/Foreign Bdy MDM Narrative: Medical decision making narrative: Bedside ultrasound revealed a small pocket of fluid with surrounding cellulitis. Incised with 11 blade. Only small amount of material and fluid removed. Plain gauze packing placed. Patient has a sulfa allergy, so clindamycin will be used. Instructions written. Discharge Plan Discharge Patient Disposition: Home Clinical Impression: Abscess of skin or subcutaneous tissue Qualifiers: Site of cutaneous abscess: trunk Site of cutaneous abscess of trunk: abdominal wall Qualified Code(s): L02.211 - Cutaneous abscess of abdominal wall Condition: Stable Prescriptions: New clindamycin HCl 300 mg capsule 300 mg PO Q6H 10 Days Qty: 40 RF: 0 ketorolac 10 mg tablet 10 mg PO TID PRN (Reason: pain) Qty: 10 RF: 0 No Action omeprazole 40 mg capsule,delayed release(DR/EC) 40 mg PO DAILY RF: 0 zolpidem [Ambien] 10 mg tablet 10 mg PO .qhs PRN (Reason: insomnia) Qty: 14 RF: 0 metformin 1,000 mg tablet 1,000 mg PO BID Qty: 240 RF: 3 amoxicillin-pot clavulanate [Augmentin] 875-125 mg tablet 1 tab PO BID 10 Days Qty: 20 RF: 0 fluticasone propion-salmeterol [Advair Diskus] 100-50 mcg/dose blister with device 1 puff INHALATION BID PRNRF: 0 acetaminophen [Tylenol Extra Strength] 500 mg tablet 500 mg PO Q4H PRN (Reason: pain) RF: 0 amitriptyline 25 mg tablet 25 mg PO DAILY RF: 0 (DME) FreeStyle Tory 14 Day [place] Misc See Rx Instructions .ROUTE .MEDSUPPLY Qty: 1 RF: 0 (DME) FreeStyle Tory 14 Day Sensor Kit See Rx Instructions .ROUTE .MEDSUPPLY Qty: 2 RF: 3 Lantus Solostar U-100 Insulin 100 unit/mL (3 mL) insulin pen 100 unit SUBCUT QAM RF: 0 bupropion HCl [Wellbutrin XL] 150 mg tablet extended release 24 hr 150 mg PO QAM Qty: 30 RF: 1 tramadol 50 mg tablet 50 mg PO TID PRN (Reason: pain) Qty: 14 RF: 0 Discharge Orders: Discharge ED (Routine); Ordered 11/16/20 Ordered By: Jimmy Liu Patient Instructions: Abscess Incision and Drainage (ED), Abscess (ED), Opioid Safety Activity Restrictions/Additional Instructions: Turn for fever despite 2-3 doses of antibiotics, worsening pain, redness, swelling, drainage despite 2-3 doses of antibiotics, other concerning symptoms. Keep packing trimmed to skin level. Remove packing after 48 hours if it does not come out on its own. Stand Alone Forms: Work/School Release Coding Level of Care Code ED Message And Delivery Service Pricer for [employer]reket Doe
[2020-11-16] MEDS: clindamycin 150 mg Capsule 600 MG PO (02:12)
[2020-11-16 02:18] VITALS: RESP 18
[2020-11-16] MEDS: oxyCODONE-APAP 5-325 mg Tablet 2 TAB PO (02:18)
[2020-11-16 03:23] VITALS: BP 142/95; PULSE 81; O2SAT 97
== END 2020-11-16 02:20 | disposition home or self-care (01) ==
PROVIDERS: Emergency Provider Emergency Medicine
DX: L02.211 Cutaneous abscess of abdominal wall (principal); Z79.4 Long term (current) use of insulin; E11.9 Type 2 diabetes mellitus without complications; F17.220 Nicotine dependence, chewing tobacco, uncomplicated
CPT/HCPCS: 10060; 99283

== ENCOUNTER 2021-04-15 17:01 | Emergency (ER) | payer BC, MEDICAID, SELFPAY ==
[2021-04-15 17:35] VITALS: BP 129/86; PULSE 87; RESP 16; TEMP 36.6; O2SAT 97; BMI 24.5
--- NOTE | 2021-04-15 17:39 | W.ED.ANIMALB ---
HPI - Animal Bite General: Chief Complaint: Animal Bite Stated Complaint: PCP SENT OVER FOR RABIES SHOT Time Seen by Provider: 04/15/21 17:39 Source: patient Mode of arrival: ambulatory Limitations: no limitations History of Present Illness: HPI narrative: Patient is a 20-year-old male who presents to ED today stating he was told to come here for rabies PEP. Patient tells me approximately 5 days ago he was bit by a stray cat to his right hand. Patient states he was seen at [facility] and placed on antibiotics. They told him he would be contacted by the health department for further instructions on rabies shots however patient never heard from them. He states he went back to work increased a day and they recommended he come to the ED to begin the series. Patient states again the cat is a stray and he does not have the animal available for quarantine. complaint: animal bite Onset (ago): day(s) Animal: cat Description of animal: wild animal (stray cat), immunizations unknown and appeared well Mechanism: bite Location - Extremities: Right: hand Context: provoked (trying to pet the cat) Associated symptoms: Reports no associated symptoms; Deny chills, fever(s) or headache(s) Related Data: Patient tetanus UTD: Yes Review of Systems Const: Denies: fever(s), chills, body aches, fatigue or malaise Eyes: Denies: change in vision, blurry vision, photophobia or eye discharge ENMT: Denies: nasal discharge or nasal congestion Card: Denies: chest pain Resp: Denies: dyspnea GI: Denies: abdominal pain, nausea, vomiting or diarrhea Musc: Denies: neck pain, back pain, extremity pain or joint pain Skin/Breast: Reports: other (cat bite R hand) Neuro: Denies: headache(s), numbness in extremities, weakness in extremities, sensory changes, difficulty walking or dizziness PFS ED PFSH: Medical History (Updated 04/15/21 @ 17:51 by FILIBERTO Thao) ADHD Anxiety Asthma Chronic post-traumatic stress disorder (PTSD) Diabetes Surgical History H/O arthroscopic knee surgery History of surgery right leg and ankle 2005 Family History Father CAD (coronary artery disease) Diabetes Mother Diabetes Stroke Cancer breast Brother Epilepsy Social History Smoking and tobacco status: current every day smoker cigarettes Packs smoked per day: 0.5 Years cigarettes smoked: 2 and smokeless tobacco Smokeless tobacco user: chewing tobacco Smokeless tobacco details: 0.25-0.5 a can per day since 14. Quit status (tobacco): considering quitting Second hand smoke exposure: No Alcohol intake: never Current gender identity: Male Physical Exam Const: COMMON NORMALS: no acute distress, average body habitus, patient oriented x3, no limitations, healthy appearing, alert and well nourished HENMT: COMMON NORMALS: normocephalic and atraumatic HEAD & SCALP: normocephalic and atraumatic Extremity: GENERAL: Yes normal exam except as noted OTHER: a few healing bite/scratch abdullahi to R hand; no swelling, redness, or drainage noted Neuro: ELIJAH COMA SCALE: document GCS findings [place] coma scale eye opening: Spontaneous Elijah coma scale verbal response: Orientated [place] coma scale motor response: Obey commands [place] coma scale total score: 15 COMMON NORMALS: patient oriented x3, moves all extremities, no focal motor deficits, no sensory deficits noted and gait normal SENSORIUM/ORIENTATION: Yes alert Skin: NARRATIVE SKIN EXAM: see extremity assessment for pertinent skin findings; otherwise normal skin exam Course Vital Signs: Vital signs: Vital Signs Temperature 97.8 F 04/15/21 17:35 Pulse Rate 87 04/15/21 17:35 Respiratory Rate 16 04/15/21 17:35 Blood Pressure 129/86 04/15/21 17:35 Pulse Oximetry 97 04/15/21 17:35 MDM - Animal Bite MDM Narrative: Medical decision making narrative: Patient on abx and wounds healing well. Tetanus UTD. According to guidelines-because the animal cannot be quarantined they do recommend rabies PEP. Patient was given immunization and immunoglobulin here. He will be given a schedule for the remainder of rabies immunizations to be completed at urgent care. Discharge Plan Discharge Patient Disposition: Home Clinical Impression: Need for post exposure prophylaxis for rabies Condition: Stable Prescriptions: No Action omeprazole 40 mg capsule,delayed release(DR/EC) 40 mg PO DAILY RF: 0 zolpidem [Ambien] 10 mg tablet 10 mg PO .qhs PRN (Reason: insomnia) Qty: 14 RF: 0 metformin 1,000 mg tablet 1,000 mg PO BID Qty: 240 RF: 3 amoxicillin-pot clavulanate [Augmentin] 875-125 mg tablet 1 tab PO BID 10 Days Qty: 20 RF: 0 fluticasone propion-salmeterol [Advair Diskus] 100-50 mcg/dose blister with device 1 puff INHALATION BID PRNRF: 0 acetaminophen [Tylenol Extra Strength] 500 mg tablet 500 mg PO Q4H PRN (Reason: pain) RF: 0 amitriptyline 25 mg tablet 25 mg PO DAILY RF: 0 (DME) FreeStyle Tory 14 Day [place] Misc See Rx Instructions .ROUTE .MEDSUPPLY Qty: 1 RF: 0 (DME) FreeStyle Tory 14 Day Sensor Kit See Rx Instructions .ROUTE .MEDSUPPLY Qty: 2 RF: 3 Lantus Solostar U-100 Insulin 100 unit/mL (3 mL) insulin pen 100 unit SUBCUT QAM RF: 0 bupropion HCl [Wellbutrin XL] 150 mg tablet extended release 24 hr 150 mg PO QAM Qty: 30 RF: 1 tramadol 50 mg tablet 50 mg PO TID PRN (Reason: pain) Qty: 14 RF: 0 ketorolac 10 mg tablet 10 mg PO TID PRN (Reason: pain) Qty: 10 RF: 0 Discharge Orders: Discharge ED (Routine); Ordered 04/15/21 Ordered By: Rachel Rolle Referrals: Patrice Sylvester MD [Primary Care Provider] - Patient Instructions: Rabies Vaccine (By injection), Rabies Immune Globulin (By injection) Coding Level of Care Code ED Lead Systems Developer for Bereket Doe
[2021-04-15] MEDS: rabies vaccine 2.5 unit SDV IM (18:02)
== END 2021-04-15 18:59 | disposition home or self-care (01) ==
PROVIDERS: Emergency Provider Physician Assistant; PCP Family Medicine
DX: Z20.3 Contact with and (suspected) exposure to rabies (principal); Z29.14 Encounter for prophylactic rabies immune globulin; Z23 Encounter for immunization; Z79.84 Long term (current) use of oral hypoglycemic drugs; Z79.4 Long term (current) use of insulin; E11.9 Type 2 diabetes mellitus without complications; F17.210 Nicotine dependence, cigarettes, uncomplicated
CPT/HCPCS: 90375; 90471; 90675; 96372; 99283

== ENCOUNTER 2022-08-23 11:54 | Emergency (ER) | payer BC, MEDICAID, SELFPAY ==
[2022-08-23 12:08] VITALS: BP 130/79; PULSE 89; RESP 16; TEMP 36.8; O2SAT 97
--- NOTE | 2022-08-23 13:01 | W.ED.WOUNDLC ---
Documented by User: FILIBERTO Thao 08/23/22 13:30 HPI - Wound/Laceration General: Chief Complaint: Wound/Laceration Stated Complaint: Lower Left leg spider bite Time Seen by Provider: 08/23/22 12:37 Source: patient Mode of arrival: ambulatory Limitations: no limitations History of Present Illness: Patient is a 21-year-old male who presents to ED today stating he was told to come here by Dr. Holt for concerns of a compartment syndrome to his left lower extremity stemming from a presumed brown recluse bite 2 to 3 weeks ago. Patient states since the bite he has continued to experience burning and pain especially with ambulation and at night with his extremity under the covers. He has not noticed any swelling to the extremity. He states redness from the bite has been outlined and has not seemed to spread outside this area. He is not running fevers. Patient is still able to ambulate on the leg. Onset (ago): week(s) Extremity Location: Left: lower leg Place: home Patient tetanus UTD: Yes Context: accidental Associated symptoms: Reports no associated symptoms; Denies chills or fever(s) Review of Systems Const: Denies: fever(s), chills, body aches, fatigue or malaise Musc: Reports: extremity pain; Denies: neck pain, back pain, extremity swelling, joint pain, joint swelling, joint redness, joint warmth or limited range of motion Skin/Breast: Reports: other (spider bite) Neuro: Denies: numbness in extremities or sensory changes [facility] ED PFSH: Medical History ADHD Anxiety Asthma Chronic post-traumatic stress disorder (PTSD) Diabetes Surgical History H/O arthroscopic knee surgery History of surgery right leg and ankle 2004 Family History Father CAD (coronary artery disease) Diabetes Mother Diabetes Stroke Cancer breast Brother Epilepsy Social History Smoking and tobacco status: current every day smoker cigarettes Packs smoked per day: 0.5 Years cigarettes smoked: 2 and smokeless tobacco Smokeless tobacco user: chewing tobacco Smokeless tobacco details: 0.25-0.5 a can per day since 14. Quit status (tobacco): considering quitting Second hand smoke exposure: No Alcohol intake: never Substance/Drug Use: never Adopted: No Caregiver/support person: No Lives independently: No Household members: spouse and children Marital status: service: No Current occupational status: employed Sexually active: Yes Do you think of yourself as: Straight/Heterosexual Current gender identity: Male Physical Exam Const: COMMON NORMALS: no acute distress, average body habitus, patient oriented x3, no limitations, healthy appearing, alert and well nourished Extremity: COMMON NORMALS: full ROM, capillary refill normal, no joint enlargement, no clubbing, cyanosis or edema, no calf tenderness and no pedal edema GENERAL: Yes normal exam except as noted LEFT LOWER EXTREMITY: Yes lower leg OTHER: Patient has a small quarter sized presumed spider bite to his left lower medial extremity. Area of erythema has been outlined (dated 08/21) and does not spread outside of this line. There is no underlying swelling or fluctuance. No skin breakdown/necrosis. No drainage from the lesion. There is no notable swelling to the lower extremity. All compartments in his lower extremity are soft. He has normal plantar/dorsiflexion without any lower leg discomfort. Neuro: COMMON NORMALS: patient oriented x3, moves all extremities, no focal motor deficits and no sensory deficits noted SENSORIUM/ORIENTATION: Yes alert Skin: NARRATIVE SKIN EXAM: spider bite-see above Course Vital Signs: Vital signs: Vital Signs Temperature 98.3 F 08/23/22 12:08 Pulse Rate 89 08/23/22 12:08 Respiratory Rate 16 08/23/22 12:08 Blood Pressure 130/79 08/23/22 12:08 Pulse Oximetry 97 08/23/22 12:08 Oxygen Delivery Me thod Room Air 08/23/22 12:08 MDM - Wound/Laceration Medical Decision Making Midlevel review. Examined patient concur with Ms. Rolle's assessment there is no evidence of compartment syndrome at this time. Can continue the course of treatment previously prescribed by his physician. No evidence of DVT at this time either. I have zero concern for compartment syndrome at this time. Lesion appears consistent with a spider bite. He is already on antibiotics. It does not appear secondarily infected at this time. Recommend continue conservative therapies at home as spider bites will heal with these alone. He states he has trazodone and hydrocodone at home he can take for sleep/discomfort. Did have Dr. Hooker also evaluate bite as he was sent from his physician office. He too feels patient is stable for discharge. Discharge Plan Discharge Patient Disposition: Home Clinical Impression: Spider bite Qualifiers: Encounter type: initial encounter Injury intent: accidental or unintentional Qualified Code(s): T63.301A - Toxic effect of unspecified spider venom, accidental (unintentional), initial encounter Condition: Stable Prescriptions: No Action Lantus Solostar U-100 Insulin 100 unit/mL (3 mL) insulin pen 100 unit SUBCUT QAM Qty: 15 3RF (DME) FreeStyle Tory 14 Day [place] Misc See Rx Instructions .ROUTE .MEDSUPPLY Qty: 1 0RF Rx Instructions: Monitor blood glucose continuously. (DME) FreeStyle Tory 14 Day Sensor Kit See Rx Instructions .ROUTE .MEDSUPPLY Qty: 2 3RF Rx Instructions: Monitor blood glucose continuously. lisinopril 2.5 mg tablet 2.5 mg PO DAILY Qty: 30 11RF Acetaminophen Extra Strength 500 mg Tablet 1,000 mg PO Q6H PRN (Reason: Pain) trazodone 50 mg tablet 50 - 150 mg PO BEDTIME hydrocodone-acetaminophen 5-325 mg tablet 1 tab PO Q6H PRN (Reason: Pain) buspirone 7.5 mg tablet 7.5 mg PO BID amoxicillin-pot clavulanate 875-125 mg tablet 1 tab PO BID Discharge Orders: Discharge ED (Routine); Ordered 08/23/22 Ordered By: Rachel Rolle Patient Instructions: Brown Recluse Spider Bite, Insect Bite or Sting (ED) Coding Level of Care Code ED Assignment Officer for Chg Fwd Documented by User: Jhonny Hooker DO 08/23/22 13:25 HPI - Wound/Laceration General: Chief Complaint: Wound/Laceration Stated Complaint: Lower Left leg spider bite Time Seen by Provider: 08/23/22 12:37 [facility] ED PFSH: Medical History ADHD Anxiety Asthma Chronic post-traumatic stress disorder (PTSD) Diabetes Surgical History H/O arthroscopic knee surgery History of surgery right leg and ankle 2005 Family History Father CAD (coronary artery disease) Diabetes Mother Diabetes Stroke Cancer breast Brother Epilepsy Social History Smoking and tobacco status: current every day smoker cigarettes Packs smoked per day: 0.5 Years cigarettes smoked: 2 and smokeless tobacco Smokeless tobacco user: chewing tobacco Smokeless tobacco details: 0.25-0.5 a can per day since 14. Quit status (tobacco): considering quitting Second hand smoke exposure: No Alcohol intake: never Substance/Drug Use: never Adopted: No Caregiver/support person: No Lives independently: No Household members: spouse and children Marital status: service: No Current occupational status: employed Sexually active: Yes Do you think of yourself as: Straight/Heterosexual Current gender identity: Male Course Vital Signs: Vital signs: Vital Signs Temperature 98.3 F 08/23/22 12:08 Pulse Rate 89 08/23/22 12:08 Respiratory Rate 16 08/23/22 12:08 Blood Pressure 130/79 08/23/22 12:08 Pulse Oximetry 97 08/23/22 12:08 Oxygen Delivery Me thod Room Air 08/23/22 12:08 MDM - Wound/Laceration Medical Decision Making Midlevel review. Examined patient concur with Ms. Rolle's assessment there is no evidence of compartment syndrome at this time. Can continue the course of treatment previously prescribed by his physician. No evidence of DVT at this time either. Medical Records I reviewed the patient's medical records. Lab Data I reviewed the patient's lab results. Discharge Plan Discharge Patient Disposition: Home Clinical Impression: Spider bite Qualifiers: Encounter type: initial encounter Injury intent: accidental or unintentional Qualified Code(s): T63.301A - Toxic effect of unspecified spider venom, accidental (unintentional), initial encounter Condition: Stable Prescriptions: No Action Lantus Solostar U-100 Insulin 100 unit/mL (3 mL) insulin pen 100 unit SUBCUT QAM Qty: 15 3RF (DME) FreeStyle Tory 14 Day [place] Misc See Rx Instructions .ROUTE .MEDSUPPLY Qty: 1 0RF Rx Instructions: Monitor blood glucose continuously. (DME) FreeStyle Tory 14 Day Sensor Kit See Rx Instructions .ROUTE .MEDSUPPLY Qty: 2 3RF Rx Instructions: Monitor blood glucose continuously. lisinopril 2.5 mg tablet 2.5 mg PO DAILY Qty: 30 11RF Acetaminophen Extra Strength 500 mg Tablet 1,000 mg PO Q6H PRN (Reason: Pain) trazodone 50 mg tablet 50 - 150 mg PO BEDTIME hydrocodone-acetaminophen 5-325 mg tablet 1 tab PO Q6H PRN (Reason: Pain) buspirone 7.5 mg tablet 7.5 mg PO BID amoxicillin-pot clavulanate 875-125 mg tablet 1 tab PO BID Discharge Orders: Discharge ED (Routine); Ordered 08/23/22 Ordered By: Rachel Rolle Patient Instructions: Brown Recluse Spider Bite, Insect Bite or Sting (ED) Coding Level of Care Code ED Assignment Officer for Bereket Doe
[2022-08-23 13:26] VITALS: BP 130/85; PULSE 79; RESP 16; O2SAT 97
--- NOTE | 2022-09-01 10:07 | DCPLANNER ---
TCM called patient due to no primary care physician - no answer at this time.
== END 2022-08-23 13:26 | disposition home or self-care (01) ==
PROVIDERS: Emergency Provider Physician Assistant
DX: T63.301A Toxic effect of unspecified spider venom, accidental (unintentional), initial encounter (principal); Z79.4 Long term (current) use of insulin; E11.9 Type 2 diabetes mellitus without complications; F17.210 Nicotine dependence, cigarettes, uncomplicated
CPT/HCPCS: 99282

== ENCOUNTER 2023-03-29 17:03 | Emergency (ER) | payer MEDICAID, SELFPAY ==
--- NOTE | 2023-03-29 17:04 | XRR_ITS ---
PROCEDURE INFORMATION: Exam: XR Left Hand Exam date and time: 03/29/2023 5:14 PM Age: 22 years old Clinical indication: Pain; Hand; Left; Additional info: Injury TECHNIQUE: Imaging protocol: Radiologic exam of the left hand. Views: 3 or more views. COMPARISON: No relevant prior studies available. FINDINGS: Bones/joints: No fracture or dislocation. Slight ulnar negative variance. Soft tissues: No acute findings. XR/XR hand LT min 3V* [id number] IMPRESSION: No acute findings.
--- NOTE | 2023-03-29 17:22 | W.ED.UPPEXIN ---
HPI - Extremity Injury (Upper) General: Chief Complaint: Extremity Problem,Nontraumatic Stated Complaint: swollen left hand Time Seen by Provider: 03/29/23 17:21 History of Present Illness: 22-year-old male patient comes in today for complaints of persistent infection to the distal left index finger. Patient reports has started having redness and swelling to the distal finger about 1 week ago. Patient was seen at [facility] last night and started on Augmentin and was given a dose of antibiotics in the ER. Patient reports some improvement but continues to have pain and swelling to the distal part of the finger. Patient denies any nausea vomiting. Patient has no noted streaking to the finger or upper extremity. Review of Systems General: Reports: 10 or more systems reviewed and unremarkable except in HPI and below Musc: Reports: extremity pain (Left distal finger) and extremity swelling PFS ED PFSH: Medical History ADHD Anxiety Asthma Chronic post-traumatic stress disorder (PTSD) Diabetes Surgical History H/O arthroscopic knee surgery History of surgery right leg and ankle 2005 Family History Father CAD (coronary artery disease) Diabetes Mother Diabetes Stroke Cancer breast Brother Epilepsy Social History Smoking and tobacco/nicotine status: current every day tobacco/nicotine user cigarettes Packs smoked per day: 0.5 Years cigarettes smoked: 2 and smokeless tobacco Smokeless tobacco user: chewing tobacco Smokeless tobacco details: 0.25-0.5 a can per day since 14. Quit status (tobacco/nicotine): considering quitting Second hand smoke exposure: No Alcohol intake: never Substance/Drug Use: never Adopted: No Caregiver/support person: No Lives independently: No Household members: spouse and children Marital status: service: No Current occupational status: employed Sexually active: Yes Do you think of yourself as: Straight/Heterosexual Current gender identity: Male Physical Exam Const: COMMON NORMALS: alert HENMT: COMMON NORMALS: normocephalic HEAD & SCALP: normocephalic Neck/C-Spine: COMMON NORMALS: full ROM Cardio: COMMON NORMALS: regular rate RATE: regular rate GI: COMMON NORMALS: Soft to palpation PALPATION: Yes Soft to palpation Extremity: LEFT UPPER EXTREMITY: Yes hand & digits (Swelling and redness distal left finger. Purulent proximal nail bed) Neuro: SENSORIUM/ORIENTATION: Yes alert Skin: COMMON NORMALS: turgor normal GENERAL SKIN EXAM: turgor normal Procedures Abscess I/D Site: hand Side (if applicable): left Local Anesthetic: lidocaine 2% Amount of anesthesia used (mL): 4 Technique: incised with #11 blade Amount of fluid expressed (mL): 5 Irrigation: Yes Packing used?: none Complications: pain Course Vital Signs: Vital signs: Vital Signs Temperature 99.1 F 03/29/23 18:14 Pulse Rate 102 H 03/29/23 18:14 Respiratory Rate 18 03/29/23 18:14 Blood Pressure 149/98 03/29/23 18:14 Pulse Oximetry 98 03/29/23 18:14 Oxygen Delivery Me thod Room Air 03/29/23 17:23 MDM - Extremity Injury (Upper) Medical Decision Making 22-year-old male patient comes in today for complaints of redness and swelling to the distal left index finger. On exam patient has swelling and erythema to the distal finger extending up to the palmar hand. Patient has good tendon use. Purulent pocket of fluid is noted to the base of the nailbed. Differential diagnosis includes but not limited to cellulitis hand, paronychia, tenosynovitis. Digital block was performed and incision was made into the base of the nailbed to allow irrigation and expression of purulent drainage. Patient tolerated well. Patient had relief of discomfort. Patient will be continued on Augmentin as directed. Patient was recommended to return for worsening symptoms such as high fever, worsening redness and swelling of the hand, or new concerns. Lab Data Radiology Impressions Hand X-Ray 03/29/23 17:04 IMPRESSION: No acute findings. No radiology studies performed this visit Discharge Plan Discharge Patient Disposition: Home Clinical Impression: Paronychia of finger of left hand Condition: Stable Prescriptions: No Action Lantus Solostar U-100 Insulin 100 unit/mL (3 mL) insulin pen 100 unit SUBCUT QAM Qty: 15 3RF (DME) FreeStyle Tory 14 Day [place] Misc See Rx Instructions .ROUTE .MEDSUPPLY Qty: 1 0RF Rx Instructions: Monitor blood glucose continuously. (DME) FreeStyle Tory 14 Day Sensor Kit See Rx Instructions .ROUTE .MEDSUPPLY Qty: 2 3RF Rx Instructions: Monitor blood glucose continuously. lisinopril 2.5 mg tablet 2.5 mg PO DAILY Qty: 30 4RF Acetaminophen Extra Strength 500 mg Tablet 1,000 mg PO Q6H PRN (Reason: Pain) trazodone 50 mg tablet 50 - 150 mg PO BEDTIME hydrocodone-acetaminophen 5-325 mg tablet 1 tab PO Q6H PRN (Reason: Pain) buspirone 7.5 mg tablet 7.5 mg PO BID amoxicillin-pot clavulanate 875-125 mg tablet 1 tab PO BID Discharge Orders: Discharge ED (Routine); Ordered 03/29/23 Ordered By: Yoan Leo Referrals: Pilo Zavala MD [Primary Care Provider] - Discharge Diet: Usual diet Discharge Activity: Increase activity as tolerated Patient Instructions: Paronychia (ED) Activity Restrictions/Additional Instructions: Home and rest. Continue with amoxicillin and potassium clavulanate as prescribed until complete. Use ice or heat to help with pain. Use hydrocodone as needed for severe pain. Follow-up with primary care for recheck. Return to ED for high fever or worsening symptoms. Stand Alone Forms: Work/School Release Coding Level of Care Code ED Cabinet Mounter for Bereket Doe
[2023-03-29 17:23] VITALS: BP 150/102; PULSE 106; RESP 18; TEMP 37.3; O2SAT 96; BMI 20.9
[2023-03-29 17:35] VITALS: RESP 18
[2023-03-29] MEDS: HYDROcodone-acetaminophen 7.5-325 mg Tablet 2 TAB PO (18:12)
--- NOTE | 2023-03-29 18:12 | PC.NURSE ---
Patient wound wrapped with petroleum gauze, regular gauze and coban.
[2023-03-29 18:14] VITALS: BP 149/98; PULSE 102; RESP 18; TEMP 37.3; O2SAT 98
== END 2023-03-29 18:18 | disposition home or self-care (01) ==
PROVIDERS: Emergency Provider Nurse Practitioner Family; PCP Family Medicine
DX: L03.012 Cellulitis of left finger (principal); Z79.4 Long term (current) use of insulin; E11.9 Type 2 diabetes mellitus without complications; F17.210 Nicotine dependence, cigarettes, uncomplicated; F17.220 Nicotine dependence, chewing tobacco, uncomplicated
CPT/HCPCS: 10060; 73130; 99283